=== PATIENT | female | born 1955 | race Caucasian/White ===

== ENCOUNTER 2021-01-16 01:55 | Emergency (ER) | payer MEDICARE, OTHER ==
[2021-01-16] MEDS ORDERED: Alum Hydrox/Mag Hydrox/Simeth 30 ML, Lidocaine 2% 15 ML PO ONE ×2 (02:27)
[2021-01-16] MEDS ORDERED: Pantoprazole 40 MG Tab.CR PO SCH (02:30)
--- NOTE | 2021-01-16 02:38 | EDM.PDOC ---
ED HPI GENERAL MEDICAL PROBLEM - General Chief Complaint: Chest Pain Stated Complaint: CHEST PAIN Time Seen by Provider: 01/16/21 02:10 Source of Information: Reports: Patient History Limitations: Reports: No Limitations - History of Present Illness INITIAL COMMENTS - FREE TEXT/NARRATIVE: Patient is a 65-year-old female who is complaining of having lower anterior chest pain and epigastric pain that has been going on for the last 5 days. There is no exertional component to her pain. At times the pain is worse when she lays down at night. She has no change in pain with eating. She denies eating any fatty or greasy foods. There is been no nausea vomiting or diarrhea. Patient has had no bloody or tarry looking stools. She has taken nothing for her current symptoms. Patient is not currently a cigarette smoker and does not drink alcohol on a regular basis. Denies any swelling to her ankles or calfs. She has had no cough or fever chills or Covid symptoms. Duration: Week(s): (one), Getting Worse, Waxing/Waning Location: Reports: Chest, Abdomen Quality: Reports: Ache, Dull. Denies: Burning Severity: Moderate Improves with: Reports: None Worsens with: Reports: Rest Associated Symptoms: Reports: No Other Symptoms. Denies: Cough Chest Pain Score (Numeric/FACES): 5 - Related Data Allergies Allergy/AdvReac Type Severity Reaction Status Date / Time No Known Allergies Allergy Verified 01/16/21 02:07 Home Meds: Home Meds Hydrocodone/Acetaminophen [HYDROcodone-Acetaminophen 5-325 MG] 1 each PO QID PRN #10 tab 01/16/21 [Rx] Sucralfate [Carafate] 1 gm PO Q6HR PRN #120 tab 01/16/21 [Rx] Social & Family History - Tobacco Use Tobacco Use Status *Q: Never Tobacco User ED ROS GENERAL - Review of Systems Review Of Systems: Comprehensive ROS is negative, except as noted in HPI. Constitutional: Reports: No Symptoms Respiratory: Reports: No Symptoms. Denies: Shortness of Breath, Pleuritic Chest Pain Cardiovascular: Reports: Chest Pain, Lightheadedness. Denies: Dyspnea on Exertion, Orthopnea, Palpitations, Syncope GI/Abdominal: Reports: Abdominal Pain. Denies: Black Stool, Bloody Stool : Reports: No Symptoms ED EXAM, GENERAL - Physical Exam Exam: See Below Exam Limited By: No Limitations General Appearance: Alert, No Apparent Distress Head: Normocephalic Neck: Supple, Full Range of Motion Respiratory/Chest: No Respiratory Distress, Lungs Clear, Normal Breath Sounds, Chest Non-Tender Cardiovascular: Regular Rate, Rhythm, No Edema GI/Abdominal: Normal Bowel Sounds, Soft, Non-Tender, No Distention Back Exam: Normal Inspection Extremities: Normal Inspection, No Pedal Edema Neurological: Alert, CN II-XII Intact Psychiatric: Normal Affect, Normal Mood Skin Exam: Warm, Dry #1 Interpretation Rhythm: NSR [place]: Normal P-Wave: Present QRS: Normal ST-T: Normal QT: Normal EKG Interpretation Comments: Normal sinus rhythm without any ST changes. Inverted T wave in anterior leads. Course - Vital Signs Text/Narrative:: Patient is feeling much better with GI cocktail. Her troponin was negative and her CBC and CMP were unremarkable. Lipase was normal. Her EKG was unremarkable. She has inverted T waves in V2 and V3 only. I believe patient's symptoms are due to gastroesophageal reflux disease or peptic ulcer disease. I am starting her on Carafate and recommending [id number] acid kathy and a low-fat small meal diet. She will follow up with a anthropology instructor if her symptoms continue and will return to the emergency department if her symptoms are worse. Last Recorded V/S: Last Vital Signs Temp 97.6 F 01/16/21 02:03 Pulse 90 01/16/21 02:03 Resp 18 01/16/21 02:03 BP 144/68 H 01/16/21 02:03 Pulse Ox 92 L 01/16/21 02:03 - Orders/Labs/Meds Orders: Active Orders 24 hr Category Date Time Status Pantoprazole [ProTONIX] Med 01/16/21 02:30 Active 40 mg PO DAILY Medication Orders Pantoprazole Sodium (Pantoprazole 40 Mg Tab.Cr) 40 mg PO DAILY [facility] Last Admin: 01/16/21 02:46 Dose: 40 mg Documented by: JESUS Labs: Laboratory Tests 01/16/21 01/16/21 Range/Units 02:50 02:50 WBC 11.33 H (3.98-10.04) K/mm3 RBC 4.59 (3.98-5.22) M/mm3 Hgb 13.0 (11.2-15.7) gm/dl Hct 40.4 (34.1-44.9) % MCV 88.0 (79.4-94.8) fl MCH 28.3 (25.6-32.2) pg MCHC 32.2 (32.2-35.5) g/dl RDW Std Deviation 47.1 H (36.4-46.3) fL Plt Count 246 (182-369) K/mm3 MPV 10.2 (9.4-12.3) fl Neutrophils % (Manual) 72 H (40-60) % Band Neutrophils % 0 (0-10) % Lymphocytes % (Manual) 22 (20-40) % Atypical Lymphs % 0 % Monocytes % (Manual) 5 (2-10) % Eosinophils % (Manual) 1 (0.7-5.8) % Basophils % (Manual) 0 L (0.1-1.2) Platelet Estimate Adequate RBC Morph Comment Normal Sodium 137 (136-145) mEq/L Potassium 3.4 L (3.5-5.1) mEq/L Chloride 105 (98-107) mEq/L Carbon Dioxide 25 (21-32) mEq/L Anion Gap 10.4 (5-15) BUN 22 H (7-18) mg/dL Creatinine 0.8 (0.55-1.02) mg/dL Est Cr Clr Drug Dosing TNP Estimated GFR (MDRD) > 60 (>60) mL/min BUN/Creatinine Ratio 27.5 H (14-18) Glucose 165 H (70-99) mg/dL Calcium 8.3 L (8.5-10.1) mg/dL Total Bilirubin 0.2 (0.2-1.0) mg/dL AST 13 L (15-37) U/L ALT 40 (14-59) U/L Alkaline Phosphatase 122 H (46-116) U/L Troponin I < 0.017 (0.00-0.056) ng/mL Total Protein 6.6 (6.4-8.2) g/dl Albumin 3.4 (3.4-5.0) g/dl Globulin 3.2 gm/dL Albumin/Globulin Ratio 1.1 (1-2) Lipase 140 (73-393) U/L Meds: Medications Generic Name Dose Route Start Last Admin Trade Name Freq PRN Reason Stop Dose Admin Pantoprazole Sodium 40 mg 01/16/21 02:30 01/16/21 02:46 Pantoprazole 40 Mg Tab.Cr PO 40 mg DAILY WAQAS Administration Discontinued Medications Generic Name Dose Route Start Last Admin Trade Name Forrest PRN Reason Stop Dose Admin Al Hydroxide/Mg Hydroxide 30 0 ml 01/16/21 02:27 01/16/21 02:45 ml/ Lidocaine HCl 15 ml PO 01/16/21 02:28 45 ml ONETIME ONE Administration Departure - Departure Time of Disposition: 04:08 Disposition: Home, Self-Care 01 Clinical Impression: Gastroesophageal reflux disease, Esophagitis Instructions: Food Choices for Gastroesophageal Reflux Disease, Adult, Esophagitis Referrals: PCP,Not In Area [Primary Care Provider] - Forms: ED Department Discharge Additional Instructions: Return to ER if worse or having exertional symptoms. [id number] acid blocking medicine and an acids. Carafate as directed. [place] if needed. Follow-up with GI doctor as soon as possible for recheck and additional work-up. Low-fat diet small meals only. Sepsis Event Note (ED) - Evaluation Sepsis Screening Result: No Definite Risk - Focused Exam Vital Signs: Vital Signs Temp Pulse Resp BP Pulse Ox 01/16/21 02:03 97.6 F 90 18 144/68 H 92 L - My Orders Last 24 Hours: My Active Orders 01/16/21 02:30 Pantoprazole [ProTONIX] 40 mg PO DAILY - Assessment/Plan Last 24 Hours: My Active Orders 01/16/21 02:30 Pantoprazole [ProTONIX] 40 mg PO DAILY
== END 2021-01-16 04:20 | disposition home or self-care (01) ==
LOC: JD.ED 01:55
DX: K21.00 Gastro-esophageal reflux disease with esophagitis, without bleeding (principal)
CPT/HCPCS: 36415; 80053; 83690; 84484; 85007; 85027; 93005; 99285; A9270; 93010; 99283